=== PATIENT | female | born 1945 | race Caucasian/White ===

== ENCOUNTER 2019-04-04 07:21 | Day surgery (SDC) | payer MEDICARE, OTHER ==
[~2019-04-04] VITALS: Ht 167.6 cm; Wt 73.0 kg
[~2019-04-04 07:21] MED LIST: ALBU90OI INH; EUTHYROX75 MCG PO; FORTESTA60 GM TOP
--- NOTE | 2019-04-04 09:00 | NUR ---
04/04/19 0900 Sharla Beach PT RYTHEM AND HR CHANGE. HR INCREASED TO 127, SVT. DR PAZ NOTIFIED. NO ORDERS RECEIVED. PER DR PAZ OK TO CONTINUE W/ NURSE SEDATION. VSS. MONITORING PT BP AND HR CLOSELY. PT CONTINUES TO GO FROM NORMAL SINUS TO RUNS OF SVT. DR PAZ AWARE. DR PAZ STATES STILL OK TO CONTINUE WITH NURSE SEDATION.
== END 2019-04-04 11:01 | disposition home or self-care (01) ==
LOC: ORSCSDS 07:21
PROVIDERS: Internal Medicine Gastroenterology
PROC: 0DBK8ZX Excision of Ascending Colon, Via Natural or Artificial Opening Endoscopic, Diagnostic (ICD-10-PCS; principal; 2019-04-04 08:45)
PROC: 0DBL8ZX Excision of Transverse Colon, Via Natural or Artificial Opening Endoscopic, Diagnostic (ICD-10-PCS; principal; 2019-04-04 08:45)
PROC: 0DBP8ZX Excision of Rectum, Via Natural or Artificial Opening Endoscopic, Diagnostic (ICD-10-PCS; principal; 2019-04-04 08:45)
PROC: 0DBM8ZX Excision of Descending Colon, Via Natural or Artificial Opening Endoscopic, Diagnostic (ICD-10-PCS; principal; 2019-04-04 08:45)
DX: Z12.11 Encounter for screening for malignant neoplasm of colon (principal); Z86.010 Personal history of colon polyps; D12.3 Benign neoplasm of transverse colon; D12.2 Benign neoplasm of ascending colon; K63.5 Polyp of colon; K62.1 Rectal polyp; E03.9 Hypothyroidism, unspecified; E78.5 Hyperlipidemia, unspecified; Z87.891 Personal history of nicotine dependence; Z79.899 Other long term (current) drug therapy
CPT/HCPCS: 88305; 93005; 93010; J2405; J2704; J7120

== ENCOUNTER 2020-02-11 21:24 | Emergency (ER) | payer MEDICARE, OTHER ==
[~2020-02-11] VITALS: Ht 165.1 cm; Wt 70.3 kg
[2020-02-11 23:20] LABS: BASOPHILS ABSOLUTE AUTO 0.04 K/mm3 (0.00-0.23); BASOPHILS PERCENT AUTO 0 % (0-2); EOSINOPHILS ABSOLUTE AUTO 0.05 K/mm3 (0.00-0.68); EOSINOPHILS PERCENT AUTO 1 % (0-6); Hematocrit 34.9 % (33.0-51.0); IMMATURE GRAN ABSOLUTE AUTO 0.05 K/mm3 (0.00-0.10); IMMATURE GRAN PERCENT AUTO 1 % (0-1); LYMPHOCYTES ABSOLUTE AUTO 0.61 K/mm3 (0.84-5.20); LYMPHOCYTES PERCENT AUTO 6 % (21-46); MONOCYTES ABSOLUTE AUTO 1.77 K/mm3 (0.16-1.47); MONOCYTES PERCENT AUTO 18 % (4-13); Mean Corpuscular HGB 27.2 pg (26.0-34.0); Mean Corpuscular HGB Conc 31.5 g/dL (31.5-36.5); Mean Corpuscular Volume 86 fL (80-100); Mean Platelet Volume 9.2 fL (9.1-12.4); NEUTROPHILS ABSOLUTE AUTO 7.26 K/mm3 (1.96-9.15); NEUTROPHILS PERCENT AUTO 74 % (41-73); Platelet Count 349 K/mm3 (150-400); RDW Coefficient Variation 15.8 % (11.7-14.2); RDW Standard Deviation 50.3 fL (35.1-46.3); Red Blood Cell Count 4.04 M/mm3 (3.80-5.20); White Blood Cell Count 9.78 K/mm3 (4.00-11.30)
[2020-02-11 23:37] LABS: Alanine Aminotransfer (ALT/SGP 117 U/L (12-78); Albumin/Globulin Ratio 0.4 (0.8-1.8); Alk Phos 336 U/L (50-136); Anion Gap 6 mmol/L (6-16); Aspartate Aminotrans (AST/SGOT 104 U/L (12-37); Bilirubin, Total 0.4 mg/dL (0.1-1.0); Blood Urea Nitrogen 12 mg/dL (8-24); Bun/Creatinine Ratio 16.5 (12.0-20.0); CO2, Blood 28 mmol/L (21-32); Calcium, Blood 9.3 mg/dL (8.5-10.1); Chloride, Blood 102 mmol/L (98-108); Creatinine, Blood 0.73 mg/dL (0.40-1.00); Globulin, Blood 4.9 g/dL (2.2-4.0); Glomerular Filtration Rate >60 (60-); Glucose, Blood 120 mg/dL (70-99); Potassium, Blood 4.1 mmol/L (3.5-5.5); Sodium, Blood 136 mmol/L (136-145); Total Protein, Blood 6.9 g/dL (6.4-8.2)
[2020-02-11] MEDS ORDERED: KEFLEX500 MG PO (23:52)
== END 2020-02-12 00:20 | disposition home or self-care (01) ==
LOC: ER 21:24
PROVIDERS: Emergency Medicine
DX: N39.0 Urinary tract infection, site not specified (principal); E05.90 Thyrotoxicosis, unspecified without thyrotoxic crisis or storm; Z88.2 Allergy status to sulfonamides; Z79.899 Other long term (current) drug therapy; Z87.891 Personal history of nicotine dependence
CPT/HCPCS: 36415; 80053; 85025; 93005; 93010; 96365; 99283-25; J0696; J7030

== ENCOUNTER 2020-02-16 14:49 | Emergency (ER) | payer MEDICARE, OTHER ==
[~2020-02-16] VITALS: Ht 167.6 cm; Wt 70.3 kg
[~2020-02-16 14:49] MED LIST changes: +KEFLEX500 MG PO
[2020-02-16 15:53] LABS: BASOPHILS ABSOLUTE AUTO 0.04 K/mm3 (0.00-0.23); BASOPHILS PERCENT AUTO 0 % (0-2); EOSINOPHILS ABSOLUTE AUTO 0.04 K/mm3 (0.00-0.68); EOSINOPHILS PERCENT AUTO 0 % (0-6); Hematocrit 36.4 % (33.0-51.0); Hemoglobin 11.3 g/dL (11.5-16.0); IMMATURE GRAN ABSOLUTE AUTO 0.07 K/mm3 (0.00-0.10); IMMATURE GRAN PERCENT AUTO 1 % (0-1); LYMPHOCYTES ABSOLUTE AUTO 0.58 K/mm3 (0.84-5.20); LYMPHOCYTES PERCENT AUTO 6 % (21-46); MONOCYTES ABSOLUTE AUTO 1.25 K/mm3 (0.16-1.47); MONOCYTES PERCENT AUTO 12 % (4-13); Mean Corpuscular HGB 26.9 pg (26.0-34.0); Mean Corpuscular Volume 87 fL (80-100); Mean Platelet Volume 9.2 fL (9.1-12.4); NEUTROPHILS ABSOLUTE AUTO 8.61 K/mm3 (1.96-9.15); NEUTROPHILS PERCENT AUTO 81 % (41-73); Platelet Count 372 K/mm3 (150-400); RDW Coefficient Variation 16.3 % (11.7-14.2); RDW Standard Deviation 51.7 fL (35.1-46.3); White Blood Cell Count 10.59 K/mm3 (4.00-11.30)
[2020-02-16 16:17] LABS: Alanine Aminotransfer (ALT/SGP 71 U/L (12-78); Albumin, Blood 1.9 g/dL (3.4-5.0); Albumin/Globulin Ratio 0.4 (0.8-1.8); Alk Phos 349 U/L (50-136); Anion Gap 7 mmol/L (6-16); Aspartate Aminotrans (AST/SGOT 78 U/L (12-37); Bilirubin, Total 0.4 mg/dL (0.1-1.0); Blood Urea Nitrogen 14 mg/dL (8-24); Bun/Creatinine Ratio 24.3 (12.0-20.0); CO2, Blood 28 mmol/L (21-32); Calcium, Blood 9.7 mg/dL (8.5-10.1); Chloride, Blood 97 mmol/L (98-108); Creatinine, Blood 0.58 mg/dL (0.40-1.00); Free Thyroxine 1.29 ng/dL (0.70-1.60); Globulin, Blood 5.2 g/dL (2.2-4.0); Glomerular Filtration Rate >60 (60-); Glucose, Blood 103 mg/dL (70-99); Potassium, Blood 4.5 mmol/L (3.5-5.5); Sodium, Blood 132 mmol/L (136-145); Total Protein, Blood 7.1 g/dL (6.4-8.2)
[2020-02-16 19:07] LABS: Source, Urine Catheter
[2020-02-16 19:12] LABS: Appearance, Urine Clear (Clear); Bilirubin, Urine Neg (Neg); Blood, Urine 2+ (Neg); Color, Urine Yellow (P-Yellow); Glucose Qualitative, Urine Neg (Neg); Ketones, Urine Neg (Neg); Leukocyte Esterase, Urine Neg (Neg); Nitrite, Urine Neg (Neg); Protein, Urine Neg (Neg); Urobilinogen, Urine NORM (Normal)
[2020-02-16 19:22] LABS: Red Blood Cells, Urine 0-2 /hpf (0-2); Squamous Epithelial Cells Not Seen /hpf (Few); White Blood Cells, Urine 0-2 /hpf (0-5)
[2020-02-16 19:23] LABS: Bacteria Few /hpf
== END 2020-02-16 21:47 | disposition home or self-care (01) ==
LOC: ER 14:49
PROVIDERS: Emergency Medicine; Physician Assistant
DX: R59.0 Localized enlarged lymph nodes (principal); R61 Generalized hyperhidrosis; R00.0 Tachycardia, unspecified; R50.9 Fever, unspecified; R42 Dizziness and giddiness; E03.9 Hypothyroidism, unspecified; Z88.2 Allergy status to sulfonamides; Z79.899 Other long term (current) drug therapy; Z87.891 Personal history of nicotine dependence
CPT/HCPCS: 36415; 71045; 74177; 80053; 81001; 83605; 84439; 84443; 85025; 96360-59; 99284-25; J7030; P9612; Q9967

== ENCOUNTER 2020-03-16 09:36 | Day surgery (SDC) | payer MEDICARE, OTHER ==
[~2020-03-16] VITALS: Ht 167.6 cm; Wt 65.1 kg
[~2020-03-16 09:36] MED LIST changes: +ALEVE220 MG PO
[2020-03-16 15:01] LABS: Performing Lab SYMBIODX; Test Name FLOW
--- NOTE | 2020-03-16 15:07 | NUR ---
[facility] DIS[facility] INSTRUCTIONS FROM [facility]OR[facility] AT 1450. PATIENT DENIES DIFFICULTY WITH PAIN OR NAUSEA. Discharge instructions reviewed with patient. Patient verbalizes understanding. Copy given to patient to take home. Patient up to Ambulate independently. Gait steady. Discharged via wheelchair to private car for ride home WITH SPOUSE
[2020-03-18 14:08] LABS: Test Name 3001495
== END 2020-03-16 22:37 | disposition home or self-care (01) ==
LOC: ORSCMMR 09:36
PROVIDERS: Pathology Clinical Pathology/Laboratory Medicine; Surgery
PROC: 07B60ZX Excision of Left Axillary Lymphatic, Open Approach, Diagnostic (ICD-10-PCS; principal; 2020-03-16 10:45)
DX: C85.14 Unspecified B-cell lymphoma, lymph nodes of axilla and upper limb (principal); Z87.891 Personal history of nicotine dependence; R63.4 Abnormal weight loss; R61 Generalized hyperhidrosis
CPT/HCPCS: 88184; 88185; 88307; 88341; 88342; J0690; J1100; J1885; J2250; J2405; J2704; J3010; J7120

== ENCOUNTER → 2020-03-22 | Outpatient (CLI) | payer MEDICARE, OTHER ==
[~2020-03-22] MED LIST changes: +DOCU100 PO
[2020-03-22 09:53] LABS: Source, Urine Clean Catch
[2020-03-22 10:46] LABS: Bilirubin, Urine Neg (Neg); Blood, Urine Neg (Neg); Glucose Qualitative, Urine Neg (Neg); Ketones, Urine Neg (Neg); Leukocyte Esterase, Urine Neg (Neg); Nitrite, Urine Neg (Neg); Protein, Urine Neg (Neg); Urobilinogen, Urine NORM (Normal)
[2020-03-22 11:15] LABS: Appearance, Urine Clear (Clear); Color, Urine Yellow (P-Yellow)
== END | disposition home or self-care (01) ==
LOC: LAB 09:50 → LAB SHORT 09:50
PROVIDERS: Surgery
DX: R31.29 Other microscopic hematuria (principal)
CPT/HCPCS: 81003

== ENCOUNTER 2020-03-26 06:23 | Day surgery (SDC) | payer MEDICARE, OTHER ==
[~2020-03-26] VITALS: Ht 167.6 cm; Wt 64.4 kg
--- NOTE | 2020-03-26 07:27 | NUR ---
pT AMBULATED TO DAY SURGERY WITH STEADY GAIT. DENIES PAIN. AT SIDE. MEDICATIONS REVIEWED. NO CHANGES. PT HAS INCISION SITE TO L AXILLARY, OPEN AREAS, BRUISING AND REDNESS NOTED, PT DENIES PAIN, BANDAGE IN PLACE. MD AWARE. PRE OP TEACHING DONE, PT DENIES QUESTIONS.
--- NOTE | 2020-03-26 08:36 | NUR ---
03/26/20 0836 Gab Laura S/P LEFT AXILLARY SENTINEL NODE BIOPSY. AREA ASSESED PER DR. JOYCE. 3-0 NYLON STICHES PLACED, AREA DRESSED W/ XEROFORM, 4 X 4 GAUZE AND MEDIPORE TAPE
--- NOTE | 2020-03-26 10:21 | NUR ---
1015- VSS. BREATHING RA. TOLERATED SIPS OF WATER AND JUICE. DENIES PAIN. NO C/O.DERMABOND DRESG X2 TO RIGHT CHEST WALL FOR MEDIPORT INSERTION TODAY. NO VISIBLE DRAINAGE OR SWELLING NOTED. GAUZE DRESSING WITH OCCLUSIVE SURGICAL TAPE DRSG NOTED TO LEFT AXILLA INTACT WITH NO VISIBLE DRAINAGE NOTED. Discharge instructions reviewed with patient. Patient verbalizes understanding. Copy given to patient to take home. Patient States Post-Procedure ride home has been arranged with her who is at bedside.
--- NOTE | 2020-03-26 10:25 | NUR ---
1015- GAIT STEADY. UP TO DRESS INDEPENDANTLY. AT BEDSIDE.
== END 2020-03-26 10:20 | disposition home or self-care (01) ==
LOC: ORSCMMR 06:23 → ORD 07:30 → ORSCMMR 07:30
DX: C83.38 Diffuse large B-cell lymphoma, lymph nodes of multiple sites (principal); E03.9 Hypothyroidism, unspecified; Z79.899 Other long term (current) drug therapy
CPT/HCPCS: 77001; C1788; J0690; J1642; J2250; J2704; J3010; J7120

== ENCOUNTER 2020-04-05 08:07 | Day surgery (SDC) | payer MEDICARE, OTHER ==
[~2020-04-05] VITALS: Ht 169 cm; Wt 65.4 kg
--- NOTE | 2020-04-05 09:50 | NUR ---
Ambulatory in Day Surgery History, Chart, Medications and Allergies reviewed before start of procedure.Patient confirms NPO status and agrees with scheduled surgery. Patient reports completing Chlorhexadine shower X2 prior to admission to hospital.
[2020-04-05 12:40] LABS: Free Thyroxine 1.48 ng/dL (0.70-1.60); Thyroid Stimulating Hormone 1.5 uIU/mL (0.360-4.800)
--- NOTE | 2020-04-05 12:45 | NUR ---
PT NOW ON ROOM AIR, INSTRUCTED TO TAKE DB AND COUGH, SAT IMPROVED FROM 90-92% TO 94%. DRG TO AXILLA C/D/I. DRGS PROVIDED FOR PT TO CHANGE DAILY INSTRUCTED. PT DRESSED W/ASSIST. Discharge instructions reviewed with patient. Patient verbalizes understanding. Copy given to patient to take home.
[2020-04-05 13:40] LABS: BASOPHILS ABSOLUTE AUTO 0.02 K/mm3 (0.00-0.23); BASOPHILS PERCENT AUTO 0 % (0-2); EOSINOPHILS ABSOLUTE AUTO 0.02 K/mm3 (0.00-0.68); EOSINOPHILS PERCENT AUTO 0 % (0-6); Hematocrit 28.5 % (33.0-51.0); Hemoglobin 8.4 g/dL (11.5-16.0); IMMATURE GRAN ABSOLUTE AUTO 0.03 K/mm3 (0.00-0.10); IMMATURE GRAN PERCENT AUTO 0 % (0-1); LYMPHOCYTES ABSOLUTE AUTO 0.38 K/mm3 (0.84-5.20); LYMPHOCYTES PERCENT AUTO 5 % (21-46); MONOCYTES ABSOLUTE AUTO 0.62 K/mm3 (0.16-1.47); MONOCYTES PERCENT AUTO 8 % (4-13); Mean Corpuscular HGB 23.3 pg (26.0-34.0); Mean Corpuscular HGB Conc 29.5 g/dL (31.5-36.5); Mean Corpuscular Volume 79 fL (80-100); Mean Platelet Volume 9.4 fL (9.1-12.4); NEUTROPHILS PERCENT AUTO 86 % (41-73); Platelet Count 391 K/mm3 (150-400); RDW Coefficient Variation 17.5 % (11.7-14.2); White Blood Cell Count 7.77 K/mm3 (4.00-11.30)
[2020-04-05 21:47] LABS: Alanine Aminotransfer (ALT/SGP 38 U/L (12-78); Albumin, Blood 1.8 g/dL (3.4-5.0); Albumin/Globulin Ratio 0.4 (0.8-1.8); Alk Phos 210 U/L (50-136); Anion Gap 8 mmol/L (6-16); Aspartate Aminotrans (AST/SGOT 63 U/L (12-37); Bilirubin, Total 0.4 mg/dL (0.1-1.0); Blood Urea Nitrogen 15 mg/dL (8-24); Bun/Creatinine Ratio 23.9 (12.0-20.0); CO2, Blood 28 mmol/L (21-32); Calcium, Blood 10.8 mg/dL (8.5-10.1); Chloride, Blood 103 mmol/L (98-108); Creatinine, Blood 0.63 mg/dL (0.40-1.00); Globulin, Blood 4.3 g/dL (2.2-4.0); Glomerular Filtration Rate >60 (60-); Glucose, Blood 105 mg/dL (70-99); Potassium, Blood 4.5 mmol/L (3.5-5.5); Sodium, Blood 139 mmol/L (136-145); Total Protein, Blood 6.1 g/dL (6.4-8.2); Uric Acid, Blood 5.1 mg/dL (2.6-6.0)
[2020-04-06 15:20] LABS: Percent Saturation 19.4 % (15.0-50.0)
== END 2020-04-05 12:50 | disposition home or self-care (01) ==
LOC: ORSCMMR 08:07 → ORD 09:00 → ORSCMMR 12:50
PROVIDERS: Internal Medicine Hematology & Oncology; Surgery
PROC: 0JB80ZZ Excision of Abdomen Subcutaneous Tissue and Fascia, Open Approach (ICD-10-PCS; principal; 2020-04-05 09:00)
DX: T81.30XA Disruption of wound, unspecified, initial encounter (principal); E78.5 Hyperlipidemia, unspecified; J45.909 Unspecified asthma, uncomplicated; I50.9 Heart failure, unspecified; Z87.891 Personal history of nicotine dependence; Z79.899 Other long term (current) drug therapy
CPT/HCPCS: 36415; 80053; 82728; 83540; 83550; 84439; 84443; 84550; 85025; J0690; J1885; J2250; J2704; J3010; J7120

== ENCOUNTER → 2020-06-23 | Outpatient (CLI) | payer MEDICARE, OTHER ==
[2020-06-23 11:05] LABS: Source, Urine Clean Catch
[2020-06-23 12:07] LABS: Appearance, Urine Clear (Clear); Bilirubin, Urine Neg (Neg); Blood, Urine Neg (Neg); Color, Urine Yellow (P-Yellow); Glucose Qualitative, Urine Neg (Neg); Ketones, Urine Neg (Neg); Leukocyte Esterase, Urine Neg (Neg); Nitrite, Urine Neg (Neg); Protein, Urine Neg (Neg); Urobilinogen, Urine NORM (Normal)
== END ==
LOC: LAB SHORT 10:58 → PLD 10:58 → LAB FUT 06-22 09:10
PROVIDERS: Internal Medicine Hematology & Oncology
DX: C85.10 Unspecified B-cell lymphoma, unspecified site (principal)
CPT/HCPCS: 81003

== ENCOUNTER 2021-01-20 08:27 | Day surgery (SDC) | payer MEDICARE, OTHER ==
[~2021-01-20] VITALS: Ht 167.6 cm; Wt 69.8 kg
[~2021-01-20 08:27] MED LIST changes: +Aspir 8181 MG PO; +CRANBERRY500 M1 PO; +MAGNESIUM OXID400 M2 PO; +METO25ER PO; +PROBIOTIC1 EA13 PO; +VITAMIN D310 MC5 PO
[2021-01-20] MEDS ORDERED: B12-FOLIC ACID1 EACH (09:02)
[2021-01-20] MEDS ORDERED: B-COMPLEX WITH1 EAC3 (09:03)
--- NOTE | 2021-01-20 09:43 | NUR ---
01/20/21 0943 Shagufta Jackson (Leandra 6ML NORMAL SALINE INJECTED FOR DESCENDING COLON POLYPECTOMY.
== END 2021-01-20 11:28 | disposition home or self-care (01) ==
LOC: ORSCSDS 08:27
PROVIDERS: Internal Medicine Gastroenterology
PROC: 0DBL8ZX Excision of Transverse Colon, Via Natural or Artificial Opening Endoscopic, Diagnostic (ICD-10-PCS; principal; 2021-01-20 09:45)
PROC: 0DBM8ZX Excision of Descending Colon, Via Natural or Artificial Opening Endoscopic, Diagnostic (ICD-10-PCS; principal; 2021-01-20 09:45)
DX: Z12.11 Encounter for screening for malignant neoplasm of colon (principal); Z86.010 Personal history of colon polyps; D12.4 Benign neoplasm of descending colon; D12.3 Benign neoplasm of transverse colon; E06.3 Autoimmune thyroiditis; Z87.891 Personal history of nicotine dependence; Z79.82 Long term (current) use of aspirin; Z79.899 Other long term (current) drug therapy; Z85.72 Personal history of non-Hodgkin lymphomas
CPT/HCPCS: 88305; J2405; J2704; J7120

== ENCOUNTER 2021-01-23 15:42 | Emergency (ER) | payer OTHER, MEDICARE ==
[~2021-01-23] VITALS: Ht 167.6 cm; Wt 69.0 kg
[~2021-01-23 15:42] MED LIST changes: +B-COMPLEX WITH1 EAC3; +B12-FOLIC ACID1 EACH
[2021-01-23] MEDS ORDERED: Norco 5-325 Ta1 EACH PO (18:21)
== END 2021-01-23 18:37 | disposition home or self-care (01) ==
LOC: ER 15:42
DX: S22.32XA Fracture of one rib, left side, initial encounter for closed fracture (principal); S60.211A Contusion of right wrist, initial encounter; S80.212A Abrasion, left knee, initial encounter; Z88.2 Allergy status to sulfonamides; Z88.8 Allergy status to other drugs, medicaments and biological substances; W01.0XXA Fall on same level from slipping, tripping and stumbling without subsequent striking against object, initial encounter
CPT/HCPCS: 71101; 73110; 73564; 99283-25

== ENCOUNTER → 2021-02-08 | Outpatient (CLI) | payer MEDICARE, OTHER ==
[~2021-02-08] MED LIST changes: +Norco 5-325 Ta1 EACH PO
== END | disposition home or self-care (01) ==
LOC: LAB SHORT 08:15 → LAB 08:15
DX: L60.2 Onychogryphosis (principal); B35.1 Tinea unguium
CPT/HCPCS: 88305; 88312

== ENCOUNTER 2022-01-28 00:25 | Observation (INO) | payer MEDICARE, OTHER ==
[~2022-01-28] VITALS: Ht 167.6 cm; Wt 73.3 kg
[2022-01-28 01:25] LABS: BASOPHILS ABSOLUTE AUTO 0.02 K/mm3 (0.00-0.23); BASOPHILS PERCENT AUTO 0 % (0-2); EOSINOPHILS ABSOLUTE AUTO 0.06 K/mm3 (0.00-0.68); EOSINOPHILS PERCENT AUTO 1 % (0-6); Hematocrit 47.9 % (33.0-51.0); IMMATURE GRAN ABSOLUTE AUTO 0.02 K/mm3 (0.00-0.10); IMMATURE GRAN PERCENT AUTO 0 % (0-1); LYMPHOCYTES ABSOLUTE AUTO 0.91 K/mm3 (0.84-5.20); LYMPHOCYTES PERCENT AUTO 10 % (21-46); MONOCYTES ABSOLUTE AUTO 0.63 K/mm3 (0.16-1.47); MONOCYTES PERCENT AUTO 7 % (4-13); Mean Corpuscular HGB 30.9 pg (26.0-34.0); Mean Corpuscular HGB Conc 33.4 g/dL (31.5-36.5); Mean Corpuscular Volume 93 fL (80-100); Mean Platelet Volume 9.4 fL (9.1-12.4); NEUTROPHILS ABSOLUTE AUTO 7.33 K/mm3 (1.96-9.15); NEUTROPHILS PERCENT AUTO 82 % (41-73); Platelet Count 217 K/mm3 (150-400); RDW Coefficient Variation 14.6 % (11.7-14.2); RDW Standard Deviation 50.2 fL (35.1-46.3); Red Blood Cell Count 5.18 M/mm3 (3.80-5.20); White Blood Cell Count 8.97 K/mm3 (4.00-11.30)
[2022-01-28 01:43] LABS: Albumin, Blood 3.8 g/dL (3.4-5.0); Bilirubin, Total 0.5 mg/dL (0.1-1.0); Bun/Creatinine Ratio 29.3 (12.0-20.0); Calcium, Blood 9.7 mg/dL (8.5-10.1); Creatinine, Blood 0.65 mg/dL (0.40-1.00); Globulin, Blood 3.7 g/dL (2.2-4.0); Total Protein, Blood 7.5 g/dL (6.4-8.2)
[2022-01-28 02:44] LABS: Source, Urine Clean Catch
[2022-01-28 02:57] LABS: Bilirubin, Urine Neg (Neg); Blood, Urine Neg (Neg); Glucose Qualitative, Urine Neg (Neg); Ketones, Urine 3+ (Neg); Leukocyte Esterase, Urine 1+ (Neg); Nitrite, Urine Neg (Neg); Protein, Urine Neg (Neg); Urobilinogen, Urine NORM (Normal)
[2022-01-28 03:02] LABS: Appearance, Urine Clear (Clear); Bacteria Rare /hpf; Color, Urine Yellow (P-Yellow); Red Blood Cells, Urine Not Seen /hpf (0-2); Squamous Epithelial Cells Rare /hpf (Few); White Blood Cells, Urine 0-2 /hpf (0-5)
--- NOTE | 2022-01-28 16:47 | NUR ---
SHIFT SUMMARY; PATIENT ADMITTED PRIOR TO LUNCH FROM ER. SHE IS AO X 4. INDEPENDANT IN ROOM. ONLY WAITING FOR ECHO BEFORE MAKES DECISION WHETHER OR NOT TO KEEP HER ONE MORE DAY. HER SPOUSE IS AT BEDSIDE. PATIENT HAS PLEASANT AFFECT AND IS COOPERATIVE WITH CARE. AFTER ECHO PATIENT IS VERY ANXIOUS TO GO HOME. NOTIFIED AND WILL WRITE FOR DC. HOWEVER PATIENT WOULD LIKE TO SPEAK WITH HIM PRIOR TO DC. HAS LEFT THE HOSPITAL ALREADY AND WILL RETURN A LITTLE LATER SO PATIENT WILL HAVE TO WAIT FOR HIM TO RETURN TO SPEAK WITH HER. PATIENT AND SPOUSE VERBALIZED UNDERSTANDING.
== END 2022-01-28 17:46 | disposition home or self-care (01) ==
LOC: ER 00:25 → MEDS 00:26 → ENPENDDIS 16:02 → MEDS 17:46
PROVIDERS: Student in an Organized Health Care Education/Training Program; ADMIT Family Medicine
DX: R00.2 Palpitations (principal); K56.600 Partial intestinal obstruction, unspecified as to cause; E03.9 Hypothyroidism, unspecified; Z88.1 Allergy status to other antibiotic agents; Z88.2 Allergy status to sulfonamides; Z88.8 Allergy status to other drugs, medicaments and biological substances; Z79.899 Other long term (current) drug therapy
CPT/HCPCS: 36415; 74177; 80053; 81001; 83690; 84484; 85025; 93005; 93010; 93306; 99285-25; G0378; J7030; Q9967

== ENCOUNTER → 2022-05-15 | Outpatient (CLI) | payer MEDICARE, OTHER | END | disposition home or self-care (01) | LOC: LAB SHORT 08:05 → PLD 08:05 | DX: L57.0 Actinic keratosis (principal) | CPT/HCPCS: 88305 ==

== ENCOUNTER → 2022-05-25 | Outpatient (CLI) | payer MEDICARE, OTHER | END | disposition home or self-care (01) | LOC: LAB SHORT 11:22 | DX: D48.5 Neoplasm of uncertain behavior of skin (principal) | CPT/HCPCS: 88305 ==

== ENCOUNTER → 2022-10-20 | Outpatient (CLI) | payer MEDICARE, OTHER | END | disposition home or self-care (01) | LOC: LAB 09:50 → LAB SHORT 09:50 | DX: M54.9 Dorsalgia, unspecified (principal) | CPT/HCPCS: 87086 ==